=== PATIENT | male | born 1995 | race Caucasian/White ===

== ENCOUNTER 2018-05-10 12:10 | Emergency (ER) | payer OTHER, SELFPAY ==
[2018-05-10 12:16] VITALS: BP 137/83; PULSE 83; RESP 14; TEMP 36.5; O2SAT 100; BMI 21.9
--- NOTE | 2018-05-10 12:23 | ED.HA ---
HPI - Headache <DENY Mims - Last Filed: 05/10/18 21:26> General Chief Complaint: Headache Stated Complaint: STATES HEAD ACHES X2 WKS Time Seen by Provider: 05/10/18 12:22 Source: patient Mode of arrival: ambulatory Limitations: no limitations History of Present Illness HPI Narrative: 23-year-old healthy male that is a nonsmoker here for complaint of having headache on and off over the past couple of weeks. He does state that he has had episodes like this in the past approximately a every month or 2 months. He does state that this instance is worse than normal. he denies any sudden onset of headache. He denies any stressors or relievers of his headache. No nausea vomiting. He does have photophobia. Headache is behind his bilateral eyes. He was seen by his primary care provider earlier this week and was treated for sinus infection with antibiotics any states that this has not helped. He states he does not feel that he has a sinus infection. He denies any purulent nasal drainage. He is tolerating p.o. intake well. He denies any neuro deficits. He is ambulatory into the emergency room. He denies any fevers or chills. Complaint: headache Onset (ago): week(s) Related Data Home Medications Medication Instructions Recorded Confirmed azithromycin 250 mg PO DAILY 05/10/18 05/10/18 Allergies Allergy/AdvReac Type Severity Reaction Status Date / Time No Known Drug Allergies Allergy Verified 05/10/18 12:20 Review of Systems <DENY Mims - Last Filed: 05/10/18 21:26> Constitutional Denies chills, Denies fever(s), Reports headache(s), Denies lethargy and Denies weakness Eyes Denies change in vision, Denies eye discharge, Denies irritation and Denies loss of vision ENT Ears, Nose, Mouth, and Throat: Denies change in voice, Reports headache(s), Denies neck pain and Denies sore throat Cardiovascular Denies chest pain, Denies irregular heart rhythm, Denies lightheadedness, Denies palpitations, Denies dyspnea, Denies dyspnea on exertion and Denies orthopnea Respiratory Denies cough, Denies dyspnea, Denies dyspnea on exertion and Denies wheezing Gastrointestinal Gastrointestinal: Denies abdominal pain, Denies change in bowel habits, Denies diarrhea, Denies nausea and Denies vomiting Genitourinary Denies hematuria, Denies flank pain, Denies urinary incontinence and Denies urinary urgency Musculoskeletal Denies neck pain Neurologic Denies confusion, Reports headache(s), Denies loss of vision and Denies weakness Psychiatric Denies anxiety, Denies confusion, Denies depression, Denies homicidal ideation and Denies suicidal ideation Endocrine Denies palpitations Hematologic/Lymphatic Denies easy bruising Allergic/Immunologic Denies wheezing Exam <DENY Mims - Last Filed: 05/10/18 21:26> Initial Vital Signs Initial Vital Signs: Vital Signs Temperature 97.7 F 05/10/18 12:16 Pulse Rate 83 05/10/18 12:16 Respiratory Rate 14 05/10/18 12:16 Blood Pressure 137/83 05/10/18 12:16 Pulse Oximetry 100 05/10/18 12:16 Const General: cooperative and well developed Nutritional Appearance: well nourished Orientation: alert, awake, oriented x3 and not confused HENMT Head: normal to inspection, normocephalic, atraumatic, No scalp tenderness and No temporal artery tenderness Mouth: oral mucosae normal, oropharynx normal and moist mucous membranes Eyes Conjunctivae: conjunctivae normal Sclera: sclerae normal Pupils: PERRL EOM: EOM intact bilaterally Neck Neck: normal visual inspection, trachea midline, No lymphadenopathy, No midline deformity and No JVD Lymphatic: No lymphedema Resp Effort & Inspection: normal respiratory effort, able to speak in complete sentences, no respiratory distress and no use of accessory muscles Auscultation: clear to auscultation bilaterally, no rales, no rhonchi and no wheezes Cardio Rate: regular rate Rhythm: regular rhythm Heart Sounds: no click, no gallops, no murmurs and no rubs Skin General: no rashes or lesions noted, No jaundice and No petechiae Neuro General: alert, oriented x3, gait normal and no focal motor deficits Speech: speech normal <Max Heard DO - Last Filed: 05/12/18 07:07> Initial Vital Signs Initial Vital Signs: Vital Signs Temperature 97.7 F 05/10/18 12:16 Pulse Rate 83 05/10/18 12:16 Respiratory Rate 14 05/10/18 12:16 Blood Pressure 137/83 05/10/18 12:16 Pulse Oximetry 100 05/10/18 12:16 Course <DENY Mims - Last Filed: 05/10/18 21:26> Orders Ordered: Discontinued Medications Diphenhydramine HCl (Benadryl) 25 mg IV NOW ONE Stop: 05/10/18 12:30 Last Admin: 05/10/18 12:55 Dose: 25 mg Sodium Chloride (Normal Saline 0.9%) 1,000 mls @ 1,000 mls/hr IV BOLUS ONE Stop: 05/10/18 13:28 Last Infusion: 05/10/18 13:53 Dose: 0 mls/hr Admin: 05/10/18 12:54 Dose: 1,000 mls/hr Metoclopramide HCl (Reglan) 10 mg IV NOW ONE Stop: 05/10/18 12:30 Last Admin: 05/10/18 12:54 Dose: 10 mg Vital Signs - 8 hr 05/10/18 14:07 Pulse Rate 71 Respiratory Rate 20 Blood Pressure 99/45 L Pulse Oximetry 99 <Max Heard DO - Last Filed: 05/12/18 07:07> Orders Ordered: Discontinued Medications Diphenhydramine HCl (Benadryl) 25 mg IV NOW ONE Stop: 05/10/18 12:30 Last Admin: 05/10/18 12:55 Dose: 25 mg Sodium Chloride (Normal Saline 0.9%) 1,000 mls @ 1,000 mls/hr IV BOLUS ONE Stop: 05/10/18 13:28 Last Infusion: 05/10/18 13:53 Dose: 0 mls/hr Admin: 05/10/18 12:54 Dose: 1,000 mls/hr Metoclopramide HCl (Reglan) 10 mg IV NOW ONE Stop: 05/10/18 12:30 Last Admin: 05/10/18 12:54 Dose: 10 mg Vital Signs - 8 hr 05/10/18 14:07 Pulse Rate 71 Respiratory Rate 20 Blood Pressure 99/45 L Pulse Oximetry 99 MDM - Headache <DENY Mims - Last Filed: 05/10/18 21:26> Differential Diagnosis Differential diagnosis: Likely migraine and headache Lab Data Result diagrams: 05/10/18 12:45 05/10/18 12:45 Lab Results 05/10/18 05/10/18 Range/Units 12:45 12:45 WBC 5.4 (4.5-11.0) X10^3/uL RBC 5.23 (4.5-5.9) X10^6/uL Hgb 15.6 (13.5-17.5) g/dL Hct 45.1 (41-53) % MCV 86.3 (80-100) fL MCH 29.9 (26-34) PG MCHC 34.6 (30-36) % RDW 12.7 (11.6-14.8) % Plt Count 199 (150-400) X10^3/uL Neut % (Auto) 49.4 L (50-75) % Lymph % (Auto) 34.8 (25-40) % [place] % (Auto) 10.8 (3-14) % Eos % (Auto) 4.4 H (2-4) % Baso % (Auto) 0.6 (0-2) % Neut # (Auto) 2600 L (3295-9362) /uL Sodium 144 (137-145) mmol/L Potassium 4.3 (3.4-5.1) mmol/L Chloride 103 (98-107) mmol/L Carbon Dioxide 28 (22-32) mmol/L BUN 12 (9-20) mg/dL Creatinine 0.80 (0.66-1.25) mg/dL Estimated GFR > 60.0 (>60) mL/min BUN/Creatinine Ratio 15.0 (6-22) Glucose 113 H (70-100) mg/dL Calcium 9.7 (8.4-10.2) mg/dL Total Bilirubin 0.6 (0.2-1.3) mg/dL AST 27 (17-59) IU/L ALT 32 (21-72) IU/L Alkaline Phosphatase 64 (38-126) U/L Total Protein 7.8 (6.3-8.2) g/dL Albumin 4.8 (3.5-5.0) g/dL Globulin 3.0 (1.7-4.1) g/dL Albumin/Globulin Ratio 1.6 (1.0-2.8) Imaging Data CT scan - head: Radiologist's impression: [address] [address] [address] Scan Report Signed Patient: JimirosemarieFady#: [id number] : 1995Acct:[id number] Age/Sex: 23 / MDate of Service: 05/10/18 Loc: ED Accession Number: [id number] Procedure: CT head/brain wo con Ordering Provider: Kamran Contreras PROCEDURE: CT HEAD/BRAIN WO CON INDICATIONS: headache for last 2 weeks TECHNIQUE: Noncontrast 4.5 mm thick angled axial sections acquired from the foramen magnum to the vertex, with coronal and sagittal reformats. For radiation dose reduction, the following was used: automated exposure control, adjustment of mA and/or kV according to patient size. COMPARISON: None. FINDINGS: Image quality: Excellent. CSF spaces: Basal cisterns are patent. No extra-axial fluid collections. Ventricles are normal in size and shape. Brain: No midline shift. No intracranial masses or hemorrhage. Ley-white matter interface is normal. Skull and face: Calvarium and visualized facial bones are intact, without suspicious lesions. Sinuses: Visualized sinuses and mastoids are clear. IMPRESSION: No CT evidence of acute intracranial pathology. MDM Narrative Medical decision making narrative: due to patient's report of a increased severity compared to his normal headaches a head CT was obtained was negative for any acute findings. CBC and Chem panel were obtained were also unremarkable. Vital signs were stable. With past history of headaches and with photophobia suspect this has migraine components to it. He was given fluids along with Compazine and Benadryl in the emergency room. This seem to have helped his headache as it is reduced in severity while he was in the emergency room. Will have him follow up with primary care provider later this week for re-evaluation and discussion of headache prophylaxis medication. for any worsening symptoms return to the emergency room. home to quite environment. Plenty of fluids and rest may continue to use Aleve for discomfort. <Max Heard DO - Last Filed: 05/12/18 07:07> Lab Data Lab Results 05/10/18 05/10/18 Range/Units 12:45 12:45 WBC 5.4 (4.5-11.0) X10^3/uL RBC 5.23 (4.5-5.9) X10^6/uL Hgb 15.6 (13.5-17.5) g/dL Hct 45.1 (41-53) % MCV 86.3 (80-100) fL MCH 29.9 (26-34) PG MCHC 34.6 (30-36) % RDW 12.7 (11.6-14.8) % Plt Count 199 (150-400) X10^3/uL Neut % (Auto) 49.4 L (50-75) % Lymph % (Auto) 34.8 (25-40) % [place] % (Auto) 10.8 (3-14) % Eos % (Auto) 4.4 H (2-4) % Baso % (Auto) 0.6 (0-2) % Neut # (Auto) 2600 L (2425-2142) /uL Sodium 144 (137-145) mmol/L Potassium 4.3 (3.4-5.1) mmol/L Chloride 103 (98-107) mmol/L Carbon Dioxide 28 (22-32) mmol/L BUN 12 (9-20) mg/dL Creatinine 0.80 (0.66-1.25) mg/dL Estimated GFR > 60.0 (>60) mL/min BUN/Creatinine Ratio 15.0 (6-22) Glucose 113 H (70-100) mg/dL Calcium 9.7 (8.4-10.2) mg/dL Total Bilirubin 0.6 (0.2-1.3) mg/dL AST 27 (17-59) IU/L ALT 32 (21-72) IU/L Alkaline Phosphatase 64 (38-126) U/L Total Protein 7.8 (6.3-8.2) g/dL Albumin 4.8 (3.5-5.0) g/dL Globulin 3.0 (1.7-4.1) g/dL Albumin/Globulin Ratio 1.6 (1.0-2.8) Discharge Plan Departure Patient Disposition: Home Clinical Impression: Headache Discharge Date/Time: 05/10/18 14:08 Interventions: ED Discharge Assessment Last Done: 05/10/18 14:07 Instructions: DI for Migraine Activity Restrictions/Additional Instructions: CT of the head today was obtained was negative for any acute findings. Laboratory results today were unremarkable. Suspect that your headaches may have some migraine components to it recommend follow with her primary care provider later this week for re-evaluation discussed and of headache prophylaxis medication. home to quiet environment. Plenty of fluids and rest. May continue to use Aleve as needed for any discomfort. For any worsening symptoms return to the e Prescriptions: No Action azithromycin 250 mg tablet 250 mg PO DAILY RF: 0 Referrals: Jean Pierre Arboleda MD [Family Provider] - <Max Heard DO - Last Filed: 05/12/18 07:07> Cosign ED Attending Robynature Attestation: I was immediately available in the department for consultation. Documentation has been reviewed. I agree with assessment and plan.
--- NOTE | 2018-05-10 12:30 | DI.CT.S_ITS ---
PROCEDURE: CT HEAD/BRAIN WO CON INDICATIONS: headache for last 2 weeks TECHNIQUE: Noncontrast 4.5 mm thick angled axial sections acquired from the foramen magnum to the vertex, with coronal and sagittal reformats. For radiation dose reduction, the following was used: automated exposure control, adjustment of mA and/or kV according to patient size. COMPARISON: None. FINDINGS: Image quality: Excellent. CSF spaces: Basal cisterns are patent. No extra-axial fluid collections. Ventricles are normal in size and shape. Brain: No midline shift. No intracranial masses or hemorrhage. Ley-white matter interface is normal. Skull and face: Calvarium and visualized facial bones are intact, without suspicious lesions. Sinuses: Visualized sinuses and mastoids are clear. IMPRESSION: No CT evidence of acute intracranial pathology. Dictated by: Abelardo Pichardo M.D. on 05/10/2018 at 12:46 Approved by: Abelardo Pichardo M.D. on 05/10/2018 at 12:47
[2018-05-10] MEDS: METOCLOPRAMIDE 10 MG/2 ML INJ IV (12:54)
[2018-05-10] MEDS: SODIUM CHLORIDE 0.9% 1,000 ML 1000 ML IV (12:54)
[2018-05-10] MEDS: diphenhydrAMINE 50 MG/ML VIAL 25 MG IV (12:55)
[2018-05-10 12:59] LABS: Add Manual Diff / Slide Review NO; Basophils Percent Auto 0.6 % (0-2); Eosinophils Percent Auto 4.4 % (2-4); Hematocrit 45.1 % (41-53); Hemoglobin 15.6 g/dL (13.5-17.5); Lymphocytes Percent Auto 34.8 % (25-40); Mean Corpuscular HGB Conc 34.6 % (30-36); Mean Corpuscular Hemoglobin 29.9 PG (26-34); Mean Corpuscular Volume 86.3 fL (80-100); Monocytes Percent Auto 10.8 % (3-14); Neutrophils Absolute Auto 2600 /uL (3000-5900); Neutrophils Percent Auto 49.4 % (50-75); Platelet Count 199 X10^3/uL (150-400); Red Blood Cell Count 5.23 X10^6/uL (4.5-5.9); Red Cell Distribution Width 12.7 % (11.6-14.8); White Blood Cell Count 5.4 X10^3/uL (4.5-11.0)
[2018-05-10 13:10] LABS: Alanine Aminotransferase 32 IU/L (21-72); Albumin 4.8 g/dL (3.5-5.0); Albumin Globulin Ratio 1.6 (1.0-2.8); Alkaline Phosphatase 64 U/L (38-126); Aspartate Aminotransferase 27 IU/L (17-59); Bilirubin Total 0.6 mg/dL (0.2-1.3); Blood Urea Nitrogen 12 mg/dL (9-20); Calcium 9.7 mg/dL (8.4-10.2); Carbon Dioxide 28 mmol/L (22-32); Chloride 103 mmol/L (98-107); Estimated Glomerular Filt Rate > 60.0 mL/min (>60); Glucose 113 mg/dL (70-100); HEMOLYSIS < 15 (0-50); Potassium 4.3 mmol/L (3.4-5.1); Sodium 144 mmol/L (137-145); Total Protein 7.8 g/dL (6.3-8.2)
[2018-05-10 14:07] VITALS: BP 99/45; PULSE 71; RESP 20; O2SAT 99
== END 2018-05-10 14:08 | disposition home or self-care (01) ==
PROVIDERS: Emergency Provider Nurse Practitioner Family; Family Provider Family Medicine
DX: R51 Headache (principal)
CPT/HCPCS: 36591; 70450; 80053; 85025; 96361; 96374; 96375; 99283; 99284; J1200; J2765

== ENCOUNTER 2018-07-27 23:06 | Emergency (ER) | payer OTHER, SELFPAY ==
[2018-07-27 23:12] VITALS: BP 147/81; PULSE 77; RESP 16; TEMP 36.9; O2SAT 99
--- NOTE | 2018-07-27 23:38 | DI.US.S_ITS ---
PROCEDURE: US ABDOMEN COMPLETE INDICATIONS: SEVERE RUQ PAIN, CHANGE IN BOWEL HABITS TECHNIQUE: Real-time scanning was performed of the abdominal and retroperitoneal organs, with image documentation. COMPARISON: None. FINDINGS: Liver: Liver is normal in size and homogeneous in echotexture. Gallbladder: Gallbladder is sonographically normal. No gallstones. No gallbladder wall thickening. No pericholecystic fluid. No sonographic Guevara sign. Biliary ducts: Intrahepatic bile ducts are non-dilated. Extrahepatic bile duct caliber measures 2.0 mm. Normal is 6-7 mm or less in diameter, or 10 mm or less post-cholecystectomy. Pancreas: Visualized portions of the pancreas are sonographically normal. Spleen: Spleen is normal in size and homogeneous in echotexture. Kidneys: Kidneys are normal in size and echotexture. Right kidney measures 10.0 cm long; left kidney measures 10.9 cm long. No hydronephrosis or nephrolithiasis. No solid masses. Aorta: Visualized aorta is normal in caliber at less than 3 cm. Iliacs: Proximal common iliac arteries are normal in caliber at less than 2.5 cm. IVC: Obscured by bowel gas and cannot be evaluated. Miscellaneous: No free abdominal fluid. IMPRESSION: Normal abdominal sonogram. Final interpretation is concordant with preliminary interpretation. Dictated by: Erin Cevallos MD, PhD on 07/28/2018 at 9:16 Approved by: Erin Cevallos MD, PhD on 07/28/2018 at 9:18
[2018-07-28 00:05] LABS: Add Manual Diff / Slide Review NO; Basophils Absolute Auto 0 /uL (0-100); Basophils Percent Auto 0.5 % (0-2); Eosinophils Absolute Auto 200 /uL (0-450); Eosinophils Percent Auto 2.6 % (2-4); Hematocrit 44.2 % (41-53); Lymphocytes Absolute Auto 3000 /uL (1100-4500); Lymphocytes Percent Auto 42.5 % (25-40); Mean Corpuscular Hemoglobin 29.5 PG (26-34); Mean Corpuscular Volume 86.8 fL (80-100); Monocytes Absolute Auto 600 /uL (0-900); Monocytes Percent Auto 8.7 % (3-14); Neutrophils Absolute Auto 3200 /uL (1500-7000); Neutrophils Percent Auto 45.7 % (50-75); Platelet Count 178 X10^3/uL (150-400); Red Blood Cell Count 5.09 X10^6/uL (4.5-5.9); Red Cell Distribution Width 12.6 % (11.6-14.8); White Blood Cell Count 7.1 X10^3/uL (4.5-11.0)
[2018-07-28 00:20] LABS: Alanine Aminotransferase 39 IU/L (21-72); Albumin 4.5 g/dL (3.5-5.0); Albumin Globulin Ratio 1.5 (1.0-2.8); Alkaline Phosphatase 60 U/L (38-126); Aspartate Aminotransferase 26 IU/L (17-59); BUN Creatinine Ratio 16.7 (6-22); Bilirubin Total 0.4 mg/dL (0.2-1.3); Blood Urea Nitrogen 15 mg/dL (9-20); Calcium 9.4 mg/dL (8.4-10.2); Carbon Dioxide 27 mmol/L (22-32); Chloride 100 mmol/L (98-107); Estimated Glomerular Filt Rate > 60.0 mL/min (>60); Glucose 93 mg/dL (70-100); HEMOLYSIS < 15 (0-50); Lipase 93 U/L (23-300); Potassium 3.6 mmol/L (3.4-5.1); Sodium 137 mmol/L (137-145); Total Protein 7.5 g/dL (6.3-8.2)
[2018-07-28 01:16] VITALS: BP 133/72; PULSE 59; RESP 18; TEMP 36.9; O2SAT 100
--- NOTE | 2018-07-28 02:28 | ED.ABDPAIN ---
HPI - Abdominal Pain General Chief Complaint: Abdominal Pain Stated Complaint: right side pain x2 days Time Seen by Provider: 07/27/18 23:09 Source: patient Mode of arrival: ambulatory Limitations: no limitations History of Present Illness HPI narrative: 23-year-old male nonsmoker an otherwise healthy presents with a chief complaint of right-sided abdominal pain without provocation or palliation for the past few days. He denies fever or chills nor nausea or vomiting but does admit to some change in his bowel movements including mucous and fall smelling. He denies recent antibiotics, travel or exposure to obviously bad food. He has had no fever or chills or history of the same Related Data Home Medications Medication Instructions Recorded Confirmed azithromycin 250 mg PO DAILY 05/10/18 05/10/18 Previous Rx's Medication Instructions Recorded ondansetron 4 mg PO TID-QID PRN #10 tab 07/28/18 Allergies Allergy/AdvReac Type Severity Reaction Status Date / Time No Known Drug Allergies Allergy Verified 05/10/18 12:20 Review of Systems Constitutional Denies chills, Denies fever(s), Denies lethargy and Denies weakness Eyes Denies change in vision, Denies eye discharge, Denies irritation and Denies loss of vision ENT Ears, Nose, Mouth, and Throat: Denies change in voice, Denies neck pain and Denies sore throat Cardiovascular Denies chest pain, Denies irregular heart rhythm, Denies lightheadedness, Denies palpitations, Denies dyspnea, Denies dyspnea on exertion and Denies orthopnea Respiratory Denies cough, Denies dyspnea, Denies dyspnea on exertion and Denies wheezing Gastrointestinal Gastrointestinal: Reports abdominal pain, Denies change in bowel habits, Reports diarrhea, Denies nausea and Denies vomiting Genitourinary Denies hematuria, Denies flank pain, Denies urinary incontinence and Denies urinary urgency Musculoskeletal Denies neck pain Integumentary/Breasts Denies pruritus, Denies erythema, Denies rash and Denies wounds Neurologic Denies confusion, Denies loss of vision and Denies weakness Psychiatric Denies anxiety, Denies confusion, Denies depression, Denies homicidal ideation and Denies suicidal ideation Endocrine Denies palpitations Hematologic/Lymphatic Denies easy bruising Allergic/Immunologic Denies wheezing PFSH Social History Smoking Status: Never smoker Social History Smoking Status: Never smoker Exam Narrative Exam Narrative: GENERAL: This is a well-nourished, well-developed patient, in mild distress. HEAD: Atraumatic. Normocephalic. No temporal or scalp tenderness. EYES: Pupils equal round and reactive. Extraocular motions intact. No scleral icterus. No injection or drainage. ENT: Nose without bleeding, purulent drainage or septal hematoma. Throat without erythema, tonsillar hypertrophy or exudate. Uvula midline. Airway patent. NECK: Trachea midline. No JVD or lymphadenopathy. Supple, nontender, no meningeal signs. CARDIOVASCULAR: Regular rate and rhythm without murmurs, gallops, or rubs. RESPIRATORY: Clear to auscultation. Breath sounds equal bilaterally. No wheezes, rales, or rhonchi. GASTROINTESTINAL: Abdomen soft, non-tender, nondistended. No hepato-splenomegaly, or palpable masses. No guarding. EXTREMITIES: No clubbing, cyanosis, or edema. No joint tenderness, effusion, or edema noted. BACK: Nontender without deformity or crepitance. No flank tenderness. NEURO: AOx3. SKIN: No rash or erythema. Initial Vital Signs Initial Vital Signs: Vital Signs Temperature 98.4 F 07/27/18 23:12 Pulse Rate 77 07/27/18 23:12 Respiratory Rate 16 07/27/18 23:12 Blood Pressure 147/81 H 07/27/18 23:12 Pulse Oximetry 99 07/27/18 23:12 Course Orders Ordered: ED Orders 07/27/18 23:38 US abdomen complete Stat Comprehensive Metabolic Panel Stat Lipase Stat Phosphorous Stat 07/28/18 00:00 Complete Blood Count AUTO DIFF Stat Vital Signs - 8 hr 07/27/18 23:12 07/28/18 01:16 Temperature 98.4 F 98.5 F Pulse Rate 77 59 L Respiratory Rate 16 18 Blood Pressure 147/81 H Blood Pressure [Left Arm] 133/72 Pulse Oximetry 99 100 MDM - Abdominal Pain Lab Data Result diagrams: 07/28/18 00:00 07/27/18 23:38 Lab Results 07/27/18 07/28/18 Range/Units 23:38 00:00 WBC 7.1 (4.5-11.0) X10^3/uL RBC 5.09 (4.5-5.9) X10^6/uL Hgb 15.0 (13.5-17.5) g/dL Hct 44.2 (41-53) % MCV 86.8 (80-100) fL MCH 29.5 (26-34) PG MCHC 34.0 (30-36) % RDW 12.6 (11.6-14.8) % Plt Count 178 (150-400) X10^3/uL Neut % (Auto) 45.7 L (50-75) % Lymph % (Auto) 42.5 H (25-40) % [place] % (Auto) 8.7 (3-14) % Eos % (Auto) 2.6 (2-4) % Baso % (Auto) 0.5 (0-2) % Neut # (Auto) 3200 (8693-5759) /uL Lymph # (Auto) 3000 (5434-6274) /uL [place] # (Auto) 600 (0-900) /uL Eos # (Auto) 200 (0-450) /uL Baso # (Auto) 0 (0-100) /uL Sodium 137 (137-145) mmol/L Potassium 3.6 (3.4-5.1) mmol/L Chloride 100 (98-107) mmol/L Carbon Dioxide 27 (22-32) mmol/L BUN 15 (9-20) mg/dL Creatinine 0.90 (0.66-1.25) mg/dL Estimated GFR > 60.0 (>60) mL/min BUN/Creatinine Ratio 16.7 (6-22) Glucose 93 (70-100) mg/dL Calcium 9.4 (8.4-10.2) mg/dL Phosphorus 4.0 (2.5-4.5) mg/dL Total Bilirubin 0.4 (0.2-1.3) mg/dL AST 26 (17-59) IU/L ALT 39 (21-72) IU/L Alkaline Phosphatase 60 (38-126) U/L Total Protein 7.5 (6.3-8.2) g/dL Albumin 4.5 (3.5-5.0) g/dL Globulin 3.0 (1.7-4.1) g/dL Albumin/Globulin Ratio 1.5 (1.0-2.8) Lipase 93 (23-300) U/L Point of care testing: Urine Dip Bedside Urine Glucose Negative Bedside Urine Bilirubin - Negative Bedside Urine Ketone - Negative Urine Specific [place] 1.010 Bedside Urine Occult Blood - Negative Bedside Urine pH 6.0 Bedside Urine Protein - Negative Bedside Urine Urobilinogen - Negative Bedside Urine Nitrite - Negative Bedside Urine Leukocytes - Negative Esterase Imaging Data US - abdomen: Radiologist's impression: No GB/liver dz MDM Narrative Medical decision making narrative: Multiple etiologies for patient's symptoms considered including: [Gallbladder disease, liver disease, pancreatitis versus infectious diarrhea versus other] Patient's symptoms improved or duration of stay with above-stated therapies. Findings and discharge diagnosis discussed with patient/family followed by verbalization of understanding Return precautions discussed with patient/family whom verbalize understanding. Discharge Plan Departure Patient Disposition: Home Clinical Impression: Abdominal pain Qualifiers: Abdominal location: right upper quadrant Qualified Code(s): R10.11 - Right upper quadrant pain Discharge Date/Time: 07/28/18 01:17 Interventions: ED Discharge Assessment Last Done: 07/28/18 01:17 Instructions: Acute Abdominal Pain Activity Restrictions/Additional Instructions: 1. Drink plenty of fluids with frequent small sips. 2. For the next 24 hours a clear liquid diet is advised. After that please employ a brat diet which would include bananas, rice, apples, toast. 3. Please take medications as directed. Tylenol / Motrin for fever pain. 4. Please follow-up with your doctor in the next 1-2 days. Call the office for an appointment. 5. Please return to the emergency Department for any worsening or persistent symptoms, such as increasing pain or fever. Prescriptions: New ondansetron 4 mg tablet,disintegrating 4 mg PO TID-QID PRN (Reason: nausea and vomiting) Qty: 10 RF: 0 No Action azithromycin 250 mg tablet 250 mg PO DAILY RF: 0 Referrals: Jean Pierre Arboleda MD [Family Provider] -
== END 2018-07-28 01:17 | disposition home or self-care (01) ==
PROVIDERS: Emergency Provider Emergency Medicine; Family Provider Family Medicine
DX: R10.11 Right upper quadrant pain (principal)
CPT/HCPCS: 76700; 80053; 81003; 83690; 84100; 85025; 99282; 99284

== ENCOUNTER → 2020-11-01 15:34 | Outpatient (CLI) | payer OTHER, SELFPAY ==
--- NOTE | 2020-11-01 15:39 | DI.RAD.S_ITS ---
PROCEDURE: XR KNEE RT 3V INDICATIONS: RT KNEE PAIN TECHNIQUE: 3 views of the knee were acquired. COMPARISON: [facility], , KNEE 3V LEFT, 04/21/2008, 15:53. FINDINGS: Bones: No fractures or dislocations. No suspicious bony lesions. Soft tissues: No joint effusion. No suspicious soft tissue calcifications. IMPRESSION: No trauma found, no effusion or loose body seen. Dictated by: Christopher Nazario M.D. on 11/01/2020 at 15:13 Approved by: Christopher Nazario M.D. on 11/01/2020 at 15:16
== END ==
PROVIDERS: PCP Student in an Organized Health Care Education/Training Program; Referring Provider Student in an Organized Health Care Education/Training Program; Visit Provider Student in an Organized Health Care Education/Training Program
DX: M25.561 Pain in right knee (principal)
CPT/HCPCS: 73562

== ENCOUNTER → 2020-12-22 13:24 | Outpatient (CLI) | payer OTHER, SELFPAY ==
[2020-12-22 14:08] LABS: COVID19 -Nasal RAPID Negative (Negative)
== END ==
PROVIDERS: PCP Student in an Organized Health Care Education/Training Program; Referring Provider Physician Assistant; Visit Provider Physician Assistant
DX: Z20.822 Contact with and (suspected) exposure to COVID-19 (principal); J02.9 Acute pharyngitis, unspecified; R09.81 Nasal congestion; R51.9 Headache, unspecified
CPT/HCPCS: 87070; 87635